=== PATIENT | female | born 1950 | race Caucasian/White ===

== ENCOUNTER 2022-03-18 13:13 | Outpatient (CLI) | payer OTHER, SELFPAY | END 2022-03-18 13:14 | disposition home or self-care (01) | LOC: NFLDREF 13:15 | PROVIDERS: PCP Family Medicine; Visit Provider Family Medicine | DX: N39.0 Urinary tract infection, site not specified (principal) | CPT/HCPCS: 87086; 87186 ==

== ENCOUNTER 2022-06-25 14:33 | Outpatient (CLI) | payer OTHER, SELFPAY | END 2022-06-25 14:34 | disposition home or self-care (01) | PROVIDERS: PCP Family Medicine; Visit Provider Family Medicine | DX: N39.0 Urinary tract infection, site not specified (principal) | CPT/HCPCS: 87086 ==

== ENCOUNTER 2022-07-08 13:10 | Outpatient (CLI) | payer OTHER, SELFPAY | END 2022-07-08 13:11 | disposition home or self-care (01) | LOC: NFLDREF 13:44 | PROVIDERS: PCP Family Medicine; Visit Provider Family Medicine | DX: N39.0 Urinary tract infection, site not specified (principal) | CPT/HCPCS: 87086 ==

== ENCOUNTER 2022-10-28 15:00 | Outpatient (CLI) | payer OTHER, SELFPAY | END 2022-10-28 15:01 | disposition home or self-care (01) | LOC: NFLDREF 10-30 00:36 | PROVIDERS: PCP Family Medicine; Referring Provider Family Medicine; Visit Provider Family Medicine | DX: N39.0 Urinary tract infection, site not specified (principal) | CPT/HCPCS: 87086 ==

== ENCOUNTER 2023-01-11 16:42 | Outpatient (CLI) | payer MEDICARE, SELFPAY | END 2023-01-11 16:43 | disposition home or self-care (01) | LOC: NFLDREF 01-12 14:31 | PROVIDERS: PCP Family Medicine; Referring Provider Family Medicine; Visit Provider Family Medicine | DX: N39.0 Urinary tract infection, site not specified (principal) | CPT/HCPCS: 87086; 87186 ==

== ENCOUNTER 2023-01-22 15:15 | Outpatient (CLI) | payer MEDICARE, SELFPAY | END 2023-01-22 15:16 | disposition home or self-care (01) | LOC: NFLDREF 01-24 17:02 | PROVIDERS: PCP Family Medicine; Referring Provider Family Medicine; Visit Provider Family Medicine | DX: N39.0 Urinary tract infection, site not specified (principal) | CPT/HCPCS: 87086 ==

== ENCOUNTER 2023-01-29 13:56 | Outpatient (CLI) | payer MEDICARE, SELFPAY | END 2023-01-29 13:57 | disposition home or self-care (01) | LOC: NFLDUCREF 13:57 | PROVIDERS: PCP Family Medicine; Visit Provider Nurse Practitioner Family | DX: M79.652 Pain in left thigh (principal) | CPT/HCPCS: 85379 ==

== ENCOUNTER 2023-02-26 11:15 | Outpatient (CLI) | payer MEDICARE, SELFPAY | END 2023-02-26 11:16 | disposition home or self-care (01) | LOC: NFLDREF 02-28 09:00 | PROVIDERS: PCP Family Medicine; Referring Provider Family Medicine | DX: N39.0 Urinary tract infection, site not specified (principal) | CPT/HCPCS: 87086; 87186 ==

== ENCOUNTER 2023-03-11 07:51 | Outpatient (CLI) | payer MEDICARE, SELFPAY ==
--- NOTE | 2023-03-11 07:02 | W.ANESCHARGE ---
Anesthesia Charges Start Date/Time Anesthesia Start Date: 03/11/23 Anesthesia Start Time: 08:50 Stop Date/Time Anesthesia Stop Date: 03/11/23 Anesthesia Stop Time: 09:25 Summary Extremes of Age - Over 70 or under 1: MDA
--- NOTE | 2023-03-11 10:26 | W.ANESCHARGE ---
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
== END 2023-03-11 07:52 | disposition home or self-care (01) ==
LOC: OP CLINIC 07:53
PROVIDERS: PCP Family Medicine; Visit Provider Surgery
DX: Z12.11 Encounter for screening for malignant neoplasm of colon (principal); K63.5 Polyp of colon; K64.4 Residual hemorrhoidal skin tags; K57.30 Diverticulosis of large intestine without perforation or abscess without bleeding; Z86.010 Personal history of colon polyps
CPT/HCPCS: 00811; 45385; 88305; 99100; J2704

== ENCOUNTER 2023-03-17 12:47 | Outpatient (CLI) | payer MEDICARE, SELFPAY ==
--- NOTE | 2023-03-17 13:00 | CRLHL7_ITS ---
For Patients: As a result of the Century Cures Act, medical imaging exams and procedure reports are released immediately into your electronic medical record. You may view this report before your referring provider. If you have questions, please contact your health care provider. BILATERAL SCREENING MAMMOGRAM WITH COMPUTER-AIDED DETECTION AND TOMOSYNTHESIS TECHNIQUE: CC and MLO views were obtained. These mammographic images have been obtained using full-field digital technique. These mammographic images were interpreted with the benefit of computer-aided detection. Breast Tomosynthesis was used in this interpretation. COMPARISON FILM: 09/01/21, 05/07/20, 05/02/19. FINDINGS: There are scattered areas of fibroglandular density IMPRESSION: There is no radiographic evidence for malignancy. ASSESSMENT: BI-RADS Category 2: Benign RECOMMENDATION: Routine screening mammogram in 1 year. A lay language report of this examination will be provided to the patient. Dank Henderson M.D. Diagnostic Radiologist [email or web address] STEPHANIE/Dictated by: Dank Henderson MD @ 03/18/2023 12:26:00 PM (Electronically Signed)
--- NOTE | 2023-03-17 13:30 | CRLHL7_ITS ---
For Patients: As a result of the Century Cures Act, medical imaging exams and procedure reports are released immediately into your electronic medical record. You may view this report before your referring provider. If you have questions, please contact your health care provider. DXA BONE MINERAL DENSITY STUDY Current height (in): 66.0. Weight (lb): 165.0. Menopause age: 56. Ethnicity: White. Reason for exam: Screening for osteoporosis. 1. Have you had a previous hip or vertebral fracture? No. 2. Have you had any fractures during your adult life which did not result from significant trauma (e.g., auto accident)? No. 3. Did either of your parents have a hip fracture? No. 4. Do you smoke? No. 5. Have you ever taken Glucocorticoids? No. 6. Do you have rheumatoid arthritis? No. 7. Do you have secondary osteoporosis? No. 8. Do you drink 3 or more alcoholic drinks per day? No. 9. Are you being treated for osteoporosis? No. 10. Have you ever taken any of the following medications: Actonel, Evista, Fosamax, Miacalcin, Reclast, Boniva, Forteo, HRT (i.e. estrogen/hormone therapy), Protelos, Prolia, Vitamin D, Calcium, other ??? please specify. ANSWER: Yes, vitamin D, calcium. 11. Do you have any of the following medical conditions: Anorexia or bulimia, asthma or emphysema, end stage renal disease, hyperparathyroidism, any seizure disorders, cancer, inflammatory bowel diseases, hysterectomy, other ??? please specify. ANSWER: No. 12. What was your maximum height (inches)? 66. 13. Do you perform weight bearing exercise regularly? No. 14. Do you regularly consume dairy products? Yes. 15. Do you drink caffeinated beverages? Yes. 16. At what age did your period start? 15. 17. Are you premenopausal? No. 18. How many full term pregnancies have you had? 0. 19. Have you ever missed your period for more than 6 months in a row (not including or menopause)? No. TECHNIQUE: Bone mineral density study was performed using the BView. FINDINGS: The results of the study expressed as bone mineral density (BMD) are as follows: Lumbar spine L1 to L4: BMD: 1.129 g/cm2. T-score: 0.7. Z-score: 3.0. Neck Left: BMD: 0.714 g/cm2. T-score: -1.2. Z-score: 0.7. Right: BMD: 0.744 g/cm2. T-score: -0.9. Z-score: 1.0. Total Left: BMD: 0.867 g/cm2. T-score: -0.6. Z-score: 1.0. Right: BMD: 0.915 g/cm2. T-score: -0.2. Z-score: 1.4. IMPRESSION: Osteopenia. *Comparison exams done prior to 12/2019 were performed on different unit, [facility]. COMPARISON: Compared with scan of 02/21/2018, the bone mineral density has increased by 5.1 percent at the spine and increased by 4.1 percent at the hip. FRAX 10-year Fracture Risk Major Osteoporotic Fracture: 9.8 percent Hip Fracture: 1.3 percent Reported Risk Factors: [place] () Neck BMD = 0.714, BMI = 26.6 Dank Henderson M.D. Diagnostic Radiologist [email or web address] Transcribed: 5:18 pm DW/Dictated by: Dank Henderson MD @ 03/17/2023 2:32:00 PM (Electronically Signed)
== END 2023-03-17 12:48 | disposition home or self-care (01) ==
LOC: MAMMO 12:48
PROVIDERS: PCP Family Medicine; Visit Provider Family Medicine
DX: Z12.31 Encounter for screening mammogram for malignant neoplasm of breast (principal); Z13.820 Encounter for screening for osteoporosis; M85.89 Other specified disorders of bone density and structure, multiple sites
CPT/HCPCS: 77063; 77067; 77080

== ENCOUNTER 2023-04-05 07:58 | Outpatient (CLI) | payer MEDICARE, SELFPAY ==
--- NOTE | 2023-04-05 08:15 | CRLHL7_ITS ---
For Patients: As a result of the Century Cures Act, medical imaging exams and procedure reports are released immediately into your electronic medical record. You may view this report before your referring provider. If you have questions, please contact your health care provider. INDICATION: Neck pain. COMPARISON: 03/25/2023. TECHNIQUE: Sagittal T1, T2, and STIR sequences. Axial T2/gradient sequences. FINDINGS: Normal vertebral body facet alignment. No fractures. No vertebral body loss of height. No spondylolisthesis. No ligamentous injury. Normal marrow signal. No suspicious osseous lesions. Normal cord signal. No intradural mass or lesion. C1-2: No spinal canal narrowing. C2-3: No splenic no neural foraminal narrowing. C3-4: Disk degeneration and posterior disc bulging disc osteophyte complex. Moderate right and mild left neural foraminal narrowing. C4-5: Disc generation and posterior disc bulge or disc osteophyte complex. No narrowing of spinal canal. Mild narrowing of the left neural foramen. No narrowing of the right neural foramen. C5-6: Disc degeneration posterior disc bulge or disc osteophyte complex. No narrowing of spinal canal. Moderate severe narrowing of bilateral foramina with potential impingement of the C6 nerve roots. C6-7: Disc generation posterior disc bulging disc osteophyte complex. No narrowing of spinal canal. Mild right and moderate left neural foraminal narrowing. C7-T1: Disc generation and posterior disc bulge or disc osteophyte complex. No narrowing of the spinal canal. Moderate right and mild left neural foraminal narrowing. T1-2: Disc generation posterior disc bulge. No narrowing of the spinal canal. Mild narrowing of the bilateral foramina. Vertebral body hemangioma T1. IMPRESSION: 1. Normal alignment. No fractures 2. Normal cord signal. No epidural mass or lesion. 3. Cervical spondylosis. 4. At C3-4, moderate right and mild left neural foraminal narrowing. 5. At C4-5, mild narrowing of the left neuroforamen 6. At C5-6, moderate severe narrowing of either neural foramina with impingement of the C6 nerve roots. 7. At C6-7, mild right and moderate left neural foraminal narrowing. 8. At C7-T1, moderate right and mild left neural foraminal narrowing. Dictated by Clarence Vanessa MD @ 04/05/2023 11:08:51 AM (Electronically Signed)
== END 2023-04-05 07:59 | disposition home or self-care (01) ==
LOC: MRI 07:58
PROVIDERS: PCP Family Medicine; Visit Provider Family Medicine
DX: M54.2 Cervicalgia (principal); M50.21 Other cervical disc displacement, high cervical region; M50.221 Other cervical disc displacement at C4-C5 level; M50.222 Other cervical disc displacement at C5-C6 level; M50.223 Other cervical disc displacement at C6-C7 level; M50.23 Other cervical disc displacement, cervicothoracic region
CPT/HCPCS: 72141

== ENCOUNTER 2023-04-15 10:32 | Outpatient (CLI) | payer MEDICARE, SELFPAY | END 2023-04-15 10:33 | disposition home or self-care (01) | LOC: NFLDREF 04-16 09:08 | PROVIDERS: PCP Family Medicine; Referring Provider Family Medicine; Visit Provider Family Medicine | DX: N39.0 Urinary tract infection, site not specified (principal) | CPT/HCPCS: 87086; 87186 ==

== ENCOUNTER 2023-05-20 09:37 | Outpatient (CLI) | payer MEDICARE, SELFPAY | END 2023-05-20 09:38 | disposition home or self-care (01) | LOC: NFLDREF 05-24 06:33 | PROVIDERS: PCP Family Medicine; Referring Provider Family Medicine; Visit Provider Family Medicine | DX: N39.0 Urinary tract infection, site not specified (principal) | CPT/HCPCS: 87086; 87186 ==

== ENCOUNTER 2023-07-20 09:15 | Outpatient (RCR) | payer MEDICARE, SELFPAY ==
--- NOTE | 2023-04-23 14:41 | PT.OPEX ---
PT [facility] Outpatient Eval PT [facility] Outpatient Eval Start: 04/23/23 07:37 Freq: Status: Active Protocol: Document 04/23/23 07:37 CRP (Rec: 04/23/23 14:36 CRP [id number]) E-signed By Ugo Caicedo PT Physical Therapy Outpatient Evaluation Insurance Information Recert Due Date 07/22/23 Insurance Information/Comments [employer] Medical Diagnosis Cervical spine spondylosis with radiculopathy Referring MD Dr Agustin Subjective Subjective Has almost constant neck pain that radiates into the R UT and can go down into the R upper arm. Will have tingling into the R hand. Started with this strawberry season. 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 MRI showed narrowing and arthritis. Is taking Celabrex . Pain increases generally with daily activity. Heat does seem to help. Also uses a pain patch. Sleep is fine and wakes without pain. The constant pain is an ache that is not always bad but is always present during the day. Pt reports she is staying as active as always. She just works through the pain. Pain Comments 01/25 Occupation Seasonal work. Objective Range of Motion cervical ROM Flex WNL with aching pain Ext min dec BIlat rot min dec R SB WNL L SB mod dec Shoulder ROM WNL Strength MMT Myotomes WNL Palpation Palpable pain interscap region Posture Forward head with kink at mid cervical spine with ext Other/Pertinent Objective Suboccip pain UPAs painful and hypomob R C1- C5 Assessment Assessment/Impression Pt presents to the clinic with chronic cervical spine pain and resulting radicular pain into the R upper extremity. Pts condition ins characterized by painful loss cervical flex and end range extension as well as poor nm control of the cervicothoracic spine. Skilled PT is necessary to incorporate ther ex, ther act, nm emerson, manual therapy and pt education to decrease pain and improve functional mobility. Primary Functional Limitations Completing work tasks Plan of Care Rehabilitation Potential Good Physical Therapy Goals 1. Pt will be 100% independent with HEP in 6 weeks. 2. 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 3. Pt will complete work tasks without pain in 12 weeks. Coordination/Communication With Referral Source Treatment Plan/Direct Interventions Joint Mobilization,Manual Therapy,Neuromuscular Re-ed, Self-Care/Home Management, Therapeutic Activities, Therapeutic Exercises Frequency/Duration 1-2x/wk for 12 weeks Patient Will Be Discharged From Therapy Completion of LTG(s),Skills Plateau,Independent w/HEP, Independently Progressing Evaluation Billing Untimed Code Treatment Minutes 30 Complexity Moderate Certification Information Initial Certification Date 04/23/23 Ending Certification Date 07/22/23 Provider Signature Shows Agreement With POC & Medical Necessity Physician Signature & Date Requested Please Sign/Date Here Physician Comment/Change : Physician NPI Number #
== END 2023-11-17 23:59 | disposition home or self-care (01) ==
PROVIDERS: PCP Family Medicine; Visit Provider Family Medicine
DX: M47.22 Other spondylosis with radiculopathy, cervical region (principal); Z51.89 Encounter for other specified aftercare
CPT/HCPCS: 97110; 97140; 97162

== ENCOUNTER 2023-09-27 09:56 | Outpatient (CLI) | payer MEDICARE, SELFPAY | END 2023-09-27 09:57 | disposition home or self-care (01) | LOC: NFLDREF 09:57 | PROVIDERS: PCP Family Medicine; Visit Provider Family Medicine | DX: R39.198 Other difficulties with micturition (principal) | CPT/HCPCS: 87086; 87186 ==

== ENCOUNTER 2023-11-08 14:04 | Outpatient (CLI) | payer OTHER, SELFPAY | END 2023-11-08 14:05 | disposition home or self-care (01) | PROVIDERS: PCP Family Medicine; Visit Provider Nurse Practitioner Family | DX: R53.83 Other fatigue (principal) | CPT/HCPCS: 80053; 82306; 87086; 87186 ==

== ENCOUNTER 2023-11-30 15:08 | Outpatient (CLI) | payer OTHER, SELFPAY ==
--- OUTSIDE RECORDS SUMMARY | 2023-11-30 15:12 | XMS_ITS | Clinical Summary ---
Author Name Unknown Organization [facility] Address [place], [place] [address] Care Team Providers Care Senior Manager Quality Assurance Name Role Phone Rm Nazario MD Primary Care Provider Allergies No known active allergies Medications Medication Sig Dispensed Refills Start Date End Date Status hydroCHLOROthiazide (HCTZ) 25 mg tablet Take 1 tablet by mouth once daily. 0 06/17/2016 Active atorvastatin (LIPITOR) 20 mg tablet Take 1 tablet by mouth at bedtime. 0 06/17/2016 Active cholecalciferol (VITAMIN D) 1,000 unit capsule Take 1 capsule by mouth once daily. 0 06/17/2016 Active trimethoprim 100 mg tabletIndications:Rec urrent UTI Take 1 tablet by mouth once daily. 90 tablet 3 07/10/2016 Active coenzyme q10 (CO Q-10) 100 mg cap Take 1 capsule by mouth once daily. 0 09/30/2016 Active Ascorbate Calcium 500 mg tab Take by mouth. 0 09/30/2016 Active [place]-3 Fatty Acids (FISH OIL) 500 mg capsule Take 1 capsule by mouth once daily. 0 09/30/2016 Active Active Problems Problem Noted Date Diagnosed Date History of recurrent UTIs 06/17/2016 Social History Tobacco Use Types Packs/Day Years Used Date Smoking Tobacco: Never Smokeless Tobacco: Never Tobacco Cessation:Counseling Given: Yes Alcohol Use Standard Drinks/Week Comments Yes 0 (1 standard drink = 0.6 oz pur e alcohol) 1 glass wine per week Sex and Gender Information Value Date Recorded Sex Assigned at Not on file Gender Identity Not on file Sexual Orientation Not on file Obstetrics History Last Filed Vital Signs Vital Sign Reading Time Taken Comments Blood Pressure 109/76 09/30/2016 11:15 AM CDT Pulse 84 09/30/2016 11:15 AM CDT Temperature 36.8 ??C (98.3 ??F) 09/30/2016 11:15 AM C DT Respiratory Rate 16 07/27/2016 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 Oxygen Saturation 99% 09/30/2016 11:15 AM CDT Inhaled Oxygen Concentration - - Weight 80.5 kg (177 lb 8 oz) 09/30/2016 11:15 AM CDT Height 161 cm (5' 3.39) 09/30/2016 11:15 AM CDT Body Mass Index 31.06 09/30/2016 11:15 AM CDT Plan of Treatment Health Maintenance Due Date Last Done Comments Tdap 1962 Depression screening for age 12+ 1963 Hepatitis C screening for age 18-79 1969 Tetanus booster 1971 Colonoscopy through age 75 01/17/1996 Lipids for age 45-75 01/17/1996 Mammogram for age 45-75 01/17/1996 Zoster (shingles) series for age 50+ (1 of 2) 2001 DEXA/DXA scan for age 65+ 01/17/2016 Pneumococcal series for age 65+ (1 of 1 - PCV) 01/17/2016 BMI (ht and wt on same day) for age 18+ 09/30/2017 0 09/30/2016, 06/17/2016 COVID-19 vaccine series (1 - 2022-24 season) 2023 Influenza for age 65+ 03/19/2024 Care Teams Senior Manager Quality Assurance Relationship Specialty Start Date End Date Rm Nazario MD [address] [place] [address] PCP - General Family Practice 01/25/12
== END 2023-11-30 15:09 | disposition home or self-care (01) ==
PROVIDERS: PCP Family Medicine; Visit Provider Nurse Practitioner Family
DX: R53.83 Other fatigue (principal); M25.50 Pain in unspecified joint
CPT/HCPCS: 82607; 86140; 86618; 87086; 87186

== ENCOUNTER 2023-12-02 14:30 | Outpatient (CLI) | payer OTHER, SELFPAY ==
--- OUTSIDE RECORDS SUMMARY | 2023-12-02 14:33 | XMS_ITS | Clinical Summary ---
Author Name Unknown Organization [facility] Address [place], [place] [address] Care Team Providers Care Livestock Counter Name Role Phone Rm Nazario MD Primary [...] tab Take by mouth. 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
== END 2023-12-02 14:31 | disposition home or self-care (01) ==
LOC: LKVREF 14:32
PROVIDERS: PCP Family Medicine; Visit Provider Nurse Practitioner Family
DX: R06.02 Shortness of breath (principal)
CPT/HCPCS: 83880

== ENCOUNTER 2023-12-10 17:22 | Emergency (ER) | payer OTHER, SELFPAY ==
[2023-12-10 17:28] VITALS: BP 135/80; PULSE 81; RESP 18; TEMP 36.4; O2SAT 96; BMI 29.1
[2023-12-10 17:50] LABS: Appearance Urine Clear (Clear); Bilirubin Urine Negative (Negative); Blood Urine Trace-intact (Negative); Color Urine Light yellow (Yellow); Glucose Urine Negative (Negative); Ketones Urine Negative (Negative); Leukocyte Esterase Urine Trace (Negative); Nitrite Urine Negative (Negative); Protein Urine Negative (Negative); Specific Gravity Urine 1.015 (1.000-1.030); Urobilinogen Urine 0.2 (0.2-1.0)
[2023-12-10 18:13] LABS: Bacteria Urine Moderate; RBC Urine 0-2 (0-2)
--- NOTE | 2023-12-10 18:27 | ED.GENADULT ---
HPI - General Adult General Date Seen: 12/10/23 Chief complaint: Urogenital Problems, Female Stated complaint: UTI Time Seen by Provider: 12/10/23 18:26 History of Present Illness HPI narrative: Very pleasant 73-year-old female presenting to the ER this afternoon with her . She has a complex mass medical history including C6 radiculopathy (symptoms going on for about 6 months, just had an epidural steroid injection today), history of frequent UTIs, ESBL Klebsiella, low back pain, hyperlipidemia, colon polyps, rheumatic fever, diverticulosis, lung nodules. She reports a long history of urinary tract infections. She has actually been having dysuria and symptoms of UTI ongoing for the past couple of months despite a couple rounds of antibiotics. Urine cultures from October and November grew the same pathogen that which up was apparently brought the resistant. Her most recent antibiotic was in October and was a single dose, possibly fosfomycin). In addition to those urinary symptoms she has ongoing trouble with arm pain and numbness. She has already been worked up for her neck and has a C6 radiculopathy and had her KOTA today. She has also had symptoms of shortness of breath, dyspnea on exertion and mild chest tightness ongoing for the past 3 weeks. She has had a cough that is nonproductive. She already had a chest x-ray a few days ago that was clear. She has also had swelling in her lower extremities (in the upper pretibial area only, not in her ankles and feet). No leg pain. No fevers or chills. No nausea or vomiting. Bowel movements have been normal. She is working on arranging our referral to [place] [facility] to be evaluated for her ongoing urinary symptoms . She tried to call their triage nurse today but was referred to the ER. They were concerned that with her UTI and other weakness/shortness of breath symptoms she might be ?septic. ? Patient reports that she has has symptoms of dysuria for the past couple months that are not getting better. Most recent course of antibiotics was in October. No other symptoms. No abdominal pain. No flank pain. No fever or chills. No nausea vomiting Also for about the past 3 week she has had symptoms of some generalized weakness, chest tightness, and dyspnea. He is of not really been getting better or worse. She has already had workups in the clinic without any clear explanation. She was referred to the ER today and wants to figure out some way to treat her UTI symptoms and also figure out why she is having the chest tightness shortness of breath. No history of tobacco use. No history of coronary disease. No history of asthma or lung disease. No recent travel. She has developed some edema affecting the upper 1/3 of both of her tibia is/ins for the past couple of weeks but no swelling in her ankles and feet. Clinic Visit Dr Ackerman 12/01 Morena is a very pleasant 73-year-old woman ... presents with essentially classic radicular left arm pain. Her symptoms date back more than [address] Gerardo Agustin in March of last year and MRI imaging of the cervical spine was obtained at that time. The MRI showed multilevel cervical spondylosis with severe bilateral foraminal stenosis at C5-6 with impingement of the bilateral C6 nerve roots. Her subjective symptoms are fully in keeping with that and in fact have consistently and steadily worsened since last March. Dr. Agustin sent her for a course of physical therapy which she completed. Unfortunately this did not yield any meaningful symptomatic benefit... She describes left-sided neck discomfort extending down the anterior aspect of the left arm all the way to the hand. She does feel however more than just the C6 dermatome involvement. She feels like all of her fingers are involved rather than just the left thumb and index finger as would be expected with C6. This would either indicate either further advancement of the other levels of the cervical spondylosis and or a secondary diagnosis such as cubital tunnel or carpal tunnel syndrome. ...now indicated to proceed with a cervical epidural steroid injection. This will be set up at [facility]. She will then return back to see me 1 week after the cervical epidural steroid injection. Given the possibility that there is another diagnosis of play I also want her to proceed with the EMG studies of the left upper extremity to rule out cubital tunnel versus carpal tunnel syndrome in addition to the cervical radiculopathy. 12/01-urgent care or visit Complaints of left-sided radiculopathy progressing over couple of months. Also of shortness of breath and poor activity tolerance. Noted some swelling in her lower legs as well. XR CHest 12/01FINDINGS: Cardiovascular and mediastinum: Cardiac silhouette is mildly enlarged. There is tortuosity of the aorta. Lungs and pleural spaces: Lungs are clear. No sign of infiltrate or mass. No sign of pleural effusion. No pneumothorax. Bones and soft tissues: No significant findings. N terminal proBNP was normal at 31 IMPRESSION: No acute findings. 11/29 Urgent care presents to the urgent care with complaints of generalized body aches along with fatigue she is reporting some left-sided pain tingling in all of her muscles including her chest muscles. She reports that she has been afebrile. She feels little bit more lightheaded and tired than normal. 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 She reports that she is not sleeping as she normally does. She has been up twice last night continuing to urinate. She reports that she has an excellent water drinker. She is also reporting a foggy brain. Urinalysis showed 0-2 RBC, 2-5 WBC, trace leukocyte esterase, few bacteria, few squamous epithelial cells. Negative nitrite. Urine culture grew Klebsiella pneumoniae greater 100,000 colony-forming units units per mL Broadly resistant. Sensitive to cefoxitin, ertapenem, levofloxacin, imipenem, piperacillin/tazobactam. Lyme disease antibody 0.23-normal 11/08/2023-urine culture grew Klebsiella.> 100,000 colony-forming units/mL. Sensitive to cefoxitin, ertapenem, imipenem, levofloxacin, piperacillin/tazobactam Related Data Home Medications ?Medication ?Instructions ?Recorded ?Confirmed celecoxib 100 mg capsule (Celebrex) 200 mg PO QDAY 12/02/23 12/02/23 Previous Rx's ?Medication ?Instructions ?Recorded atorvastatin 20 mg tablet 20 mg PO QHS #90 tabs 12/15/22 hydrochlorothiazide 25 mg tablet 25 mg PO QDAY #90 tabs 12/15/22 zolpidem 5 mg tablet 5 mg PO QHS PRN insomnia #90 tabs 07/08/23 levofloxacin 500 mg tablet 500 mg PO DAILY 4 days #4 tabs 12/10/23 Allergies Allergy/AdvReac Type Severity Reaction Status Date / Time No Known Drug Allergies Allergy Verified 12/10/23 20:13 [facility] Medical History (Updated 12/10/23 @ 21:50 by Tom Dash MD) Cervical radiculopathy at C6 ?M54.12 - Radiculopathy, cervical region (ICD-10) Fatigue ?R53.83 - Other fatigue (ICD-10) Left thigh pain ?M79.652 - Pain in left thigh (ICD-10) Urinary tract infection ?N39.0 - Urinary tract infection, site not specified (ICD-10) Surgical History History of hand surgery (11/07/20) ?Z98.890 - Other specified postprocedural states (ICD-10) S/P tonsillectomy and adenoidectomy ?Z90.89 - Acquired absence of other organs (ICD-10) Family History Other Breast cancer Thyroid disease Social History Smoking Status: Never smoker Non-prescribed substance use: denies use Little interest or pleasure in doing things: not at all Feeling down, depressed, or hopeless: not at all Exam Narrative: Exam Narrative: Constitutional: Appears well-developed and well-nourished. Alert. Conversant. Non toxic. HENT: Head: Atraumatic. Nose: Nose normal. Mouth/Throat: Oral mucosa is clear and moist. no trismus. Pharynx normal. Tonsils symmetric. No tonsillar enlargement, erythema, or exudate. Eyes: Conjunctivae normal. EOM normal. Pupils equal, round, and reactive to light. No scleral icterus. Neck: Normal range of motion. Neck supple. No tracheal deviation present. No JVD Cardiovascular: Normal rate, regular rhythm. No gallop. No friction rub. No murmur heard. Symmetric radial artery pulses Pulmonary/Chest: Effort normal. No stridor. No respiratory distress. No wheezes. No rales. No rhonchi . No tenderness. Abdominal: Soft. Bowel sounds normal. No distension. No mass. No tenderness. No rebound. No guarding. Musculoskeletal: RUE: Normal range of motion. No tenderness. No deformity LUE: Normal range of motion. No tenderness. No deformity RLE: Normal range of motion. 1+ edema affecting the upper 1/3 of her galeano. No tenderness. No deformity LLE: Normal range of motion. 1+ edema affecting the upper 1/3 of her galeano. No tenderness. No deformity Neurological: Alert and oriented to person, place, and time. Normal strength. CN II-VII intact. No sensory deficit. GCS eye subscore is 4. GCS verbal subscore is 5. GCS motor subscore is 6. Normal coordination Skin: Skin is warm and dry. No rash noted. No pallor. Normal capillary refill. She has a fairly deep agarwal on her hands but her forearms are not agarwal (has been wearing long sleeves) Psychiatric: Normal mood. Normal affect. Const: Vital Signs, click to edit/add: Vital Signs - 24 hr 12/10/23 17:28 Temperature 97.5 F L Pulse Rate [Left P ulse Oximeter] 81 Respiratory Rate 18 Blood Pressure [Ri ght Upper Arm] 135/80 Pulse Oximetry 96 Oxygen Delivery Me thod Room Air Course Vital Signs Vital signs: Initial Vital Signs Temperature 97.5 F L 12/10/23 17:28 Temperature Source Temporal Artery Scan 12/10/23 17:28 Pulse Rate 81 12/10/23 17:28 Pulse Rhythm Regular 12/10/23 17:28 Pulse Strength 3+ Normal 12/10/23 17:28 Respiratory Rate 18 12/10/23 17:28 Blood Pressure 135/80 12/10/23 17:28 Blood Pressure Mean 98 12/10/23 17:28 Blood Pressure Position Sitting 12/10/23 17:28 Pulse Oximetry 96 12/10/23 17:28 Oxygen Delivery Method Room Air 12/10/23 17:28 Vital Signs Temperature 97.5 F L 12/10/23 17:28 Pulse Rate 81 12/10/23 17:28 Respiratory Rate 18 12/10/23 17:28 Blood Pressure 135/80 12/10/23 17:28 Pulse Oximetry 96 12/10/23 17:28 Oxygen Delivery Method Room Air 12/10/23 17:28 Temperature 97.5 F L 12/10/23 17:28 Pulse Rate 81 12/10/23 17:28 Respiratory Rate 18 12/10/23 17:28 Blood Pressure 135/80 12/10/23 17:28 Pulse Oximetry 96 12/10/23 17:28 Oxygen Delivery Method Room Air 12/10/23 17:28 Medications Administered Medications: Discontinued Medications Generic Name Dose Route Start Last Admin Trade Name Freq PRN Reason Stop Dose Admin Levofloxacin 500 mg 12/10/23 21:10 12/10/23 21:44 Levofloxacin 500 Mg Tablet PO 12/10/23 21:11 500 mg ONCE ONE Administration Medical Decision Making [facility] Narrative Medical decision making narrative: Pleasant 73-year-old female presenting to the ER today with multiple indurated complaints. She has had dysuria symptoms for this past couple months and has had urine cultures growing Klebsiella in October and in November. This does have fairly broad resistance but is susceptible to level floxacillin as well as other IV antibiotics. She was referred by her urology clinic triage nurse because she might be ?septic. ?. Clinical exam and vital signs clearly indicate that she is not septic. Urinalysis today shows really not minimal signs of active infection. However she still has symptoms. After discussion of risks/benefits of fluoroquinolones, We will treat her with course of levofloxacin to cover for her Klebsiella. Level floxacillin 500 mg once daily for 5 days. Also consider the possibility that this Klebsiella is a colonizer and that her dysuria symptoms are related to non infectious etiology such as interstitial cystitis. I would recommend she still follow-up with Urology. SHe has an appointment next Wednesday. She also endorses that for the past 3 weeks she has had some dyspnea on exertion, chest tightness, weakness, as well as a mild cough. The chest tightness symptoms are not exertional or following a pattern typical for angina. Differential for this is broad. She had already had a chest x-ray and BNP level done in clinic last week that were normal. No evidence for CHF. Interestingly she does have a little bit of pretibial swelling on the upper 3rd of her tibia as. Swelling not really consistent with DVT. No overlying erythema to suggest cellulitis or abscess. Repeat in terminal proBNP today is still normal at 66 . EKG nonischemic. Troponin undetectable at less than 0.01. CT pulmonary angiogram of the chest does not show any evidence for PE but does show dense coronary calcifications. At this point no clear evidence for unstable angina (with 3 weeks of stable symptoms) or NSTEMI or STEMI. Nonetheless, consider an atypical presentation since she is female, would recommend outpatient follow-up with primary care to have stress testing as soon as possible. CT scan of her lungs she is negative for PE. No evidence for occult pneumonia. No pneumothorax. No pleural effusion. No pulmonary edema. No CT findings to suggest other chronic lung conditions such as autoimmune diseases or pulmonary fibrosis. She had not let yet had CBC to check hemoglobin. Hemoglobin today is 13.8. I noticed that CBC shows a white count of 13.1. Unclear etiology. Metabolic profile shows normal electrolytes, normal kidney function, normal blood sugar. Lung sounds are clear. No wheezing or bronchospasm. We did obtain chest CT to look for possible pneumonia that had been occult on recent chest x-ray and also to rule out other pathology such as PE causing her dyspnea. Lab Data Labs: Lab Results 12/10/23 12/10/23 Range/Units 17:30 19:10 WBC 13.12 H (4.50-11.00) K/uL RBC 4.70 (4.00-5.20) m/uL Hgb 13.8 (12.0-16.0) gm/dL Hct 43.2 (33.0-51.0) % MCV 92 (80-100) fL MCH 29 (26-34) pg MCHC 32 (32-36) gm/dL RDW Coeff of Didi 12.9 (11.5-15.5) % Plt Count 296 (140-440) K/uL Neut % (Auto) 91.4 H (42.0-72.0) % Lymph % (Auto) 6.2 L (20-44) % [place] % (Auto) 1.9 (0.0-11.0) % Eos % (Auto) 0.2 (0.0-7.0) % Baso % (Auto) 0.1 (0.0-3.0) % Neut # (Auto) 12.00 H (1.7-7.0) K/uL Lymph # (Auto) 0.80 L (0.90-2.90) K/uL [place] # (Auto) 0.20 (0.00-0.90) K/UL Eos # (Auto) 0.00 (0.00-0.50) K/uL Baso # (Auto) 0.00 (0.00-0.30) K/uL Abs Immat Gran (auto) 0.00 (0.00-0.30) K/uL Imm/Tot Granulo (auto) 0.2 % Sodium 140 (135-149) mmol/L Potassium 4.4 (3.6-5.1) mmol/L Chloride 103 (96-114) mmol/L Carbon Dioxide 24 (20-32) mmol/L Anion Gap 13 (7-15) mEq/L BUN 21 (7-30) mg/dL Creatinine 0.7 (0.5-1.5) mg/dL Estimated Creat Clear 45.76 Estimated GFR 92 ml/min Glucose 130 H (60-115) mg/dL Calcium 10.3 (8.4-10.6) mg/dL Troponin I < 0.01 L (0.01-0.04) ng/mL NT-Pro-B Natriuret Pep 66 pg/mL Urine Color Light yellow (Yellow) Urine Appearance Clear (Clear) Urine pH 7.0 (5.0-8.5) Ur Specific [place] 1.015 (1.000-1.030) Urine Protein Negative (Negative) Urine Glucose (UA) Negative (Negative) Urine Ketones Negative (Negative) Urine Blood Trace-intact A (Negative) Urine Nitrite Negative (Negative) Urine Bilirubin Negative (Negative) Urine Urobilinogen 0.2 (0.2-1.0) Ur Leukocyte Esterase Trace A (Negative) Urine RBC 0-2 (0-2) Urine WBC 2-5 (0-5) Ur Squamous Epith Cells None (None-Few) Urine Bacteria Moderate A (None) Imaging Data CT scan - chest: Attestation: I have reviewed the pertinent imaging results. Radiologist's impression: IMPRESSION: 1. No pulmonary embolus. No CT evidence of right heart strain. 2. No acute intrathoracic pathology. 3. Dense coronary arterial calcifications. Advise correlation with ASCVD evaluation. ECG Data Attestation: I personally reviewed and interpreted this ECG as follows: Interpretation: Normal sinus rhythm. Rate 92 MS interval 170 Normal QRS axis. No ST segment elevation or depression. Nonspecific T-wave changes in leads V1, V2, V3, lead 3 QTC 467 Discharge Plan Discharge Clinical Impression: Coronary artery calcification, Acute dyspnea, UTI symptoms Patient Disposition: Home, Self-Care Condition: Stable Instructions: Urinary Tract Infection in Women (DC), Dyspnea (ED), Coronary Artery Disease in Women (DC) Additional Instructions: At this point the exact cause of your shortness of breath is not clear. You do not have any blood clots in your lungs or any pneumonia. No heart attack today. We do see the you have signs of coronary artery disease on your CT scan. At this point no evidence for heart attack. It is very important for you to follow-up with your regular doctor by next week and arrange an outpatient stress test for further evaluation. If you develop any worsening shortness of breath or chest tightness, come back to the ER right away. We will put you on levofloxacin, a strong antibiotic, to treat your urinary symptoms. Do not take calcium pills for the next 5 days while you are on the levofloxacin. This should help any infection get better within the next 2-3 days. If you get worse, come back to the ER right away. Even if you get better please follow-up with the urologist next week for recheck. Prescriptions: New levofloxacin 500 mg tablet 500 mg PO DAILY 4 Days Qty: 4 0RF No Action atorvastatin 20 mg tablet 20 mg PO QHS Qty: 90 3RF hydrochlorothiazide 25 mg tablet 25 mg PO QDAY Qty: 90 3RF celecoxib [Celebrex] 100 mg capsule 200 mg PO QDAY zolpidem 5 mg tablet 5 mg PO QHS PRN (Reason: insomnia) Qty: 90 1RF Follow Up/Referrals: Shane Tobin MD [Staff Physician] - Stand Alone Forms: [employer] Info Instructions
--- NOTE | 2023-12-10 19:02 | CRLHL7_ITS ---
For Patients: As a result of the Century Cures Act, medical imaging exams and procedure reports are released immediately into your electronic medical record. You may view this report before your referring provider. If you have questions, please contact your health care provider. INDICATION: Dyspnea. Chest pain. TECHNIQUE: Multiplanar CT pulmonary angiogram was performed after the administration of 95 mL of Isovue 370 intravenous contrast. COMPARISON: Chest radiographs 12/02/2023. FINDINGS: Lower neck: The visualized thyroid is unremarkable. Cardiovascular: Contrast opacification of the pulmonary arterial tree is adequate. Heart size is normal. Thoracic aorta and pulmonary artery are normal in caliber. Mild atherosclerotic calcifications of the aortic arch. Dense coronary arterial calcifications. No pulmonary embolus. Mediastinum and lymph nodes: Unremarkable. Lungs: Tiny calcified granuloma within the right lung apex. No focal consolidation. Dependent atelectasis. Linear bandlike opacification of the lung bases bilaterally, likely subsegmental atelectasis and/or scarring. Airways: Trachea remains patent and midline. Mild diffuse peribronchial wall thickening. Pleura: No pleural effusions or pneumothorax. Chest wall: Unremarkable. Bones: No acute osseous abnormalities. Mild degenerative changes of the thoracic spine. Upper abdomen: Colonic diverticulosis without CT evidence of acute diverticulitis. Otherwise, the visualized upper abdomen is within normal limits. No reflux of contrast material into the IVC. IMPRESSION: 1. No pulmonary embolus. No CT evidence of right heart strain. 2. No acute intrathoracic pathology. 3. Dense coronary arterial calcifications. Advise correlation with ASCVD evaluation. Please note that all CT scans at this facility use dose modulation, iterative reconstruction, and/or weight-based dosing when appropriate to reduce radiation dose to as low as reasonably achievable. Dictated by Heron Beyer MD @ 12/10/2023 9:21:57 PM (Electronically Signed)
[2023-12-10 19:20] LABS: Basophils Percent Auto 0.1 % (0.0-3.0); Eosinophils Percent Auto 0.2 % (0.0-7.0); Hematocrit 43.2 % (33.0-51.0); Hemoglobin* 13.8 gm/dL (12.0-16.0); Immature Granulocytes Pct Auto 0.2 %; Lymphocytes Percent Auto 6.2 % (20-44); Mean Corpuscular HGB Conc 32 gm/dL (32-36); Mean Corpuscular Hemoglobin 29 pg (26-34); Mean Corpuscular Volume 92 fL (80-100); Monocytes Percent Auto 1.9 % (0.0-11.0); Neutrophils Percent Auto 91.4 % (42.0-72.0); Platelet Count* 296 K/uL (140-440); RDW Coefficient of Variation % 12.9 % (11.5-15.5); White Blood Count* 13.12 K/uL (4.50-11.00)
--- OUTSIDE RECORDS SUMMARY | 2023-12-10 19:21 | XMS_ITS | Clinical Summary ---
Author Organization [employer] [facility] Address [place], [place] [address] Care Team Providers Care Dosier Operator Name Role Phone Rm Nazario MD Primary [...] tab Take by mouth. 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
[2023-12-10 19:23] LABS: Slide Review Reflex No
[2023-12-10 19:46] LABS: Chloride* 103 mmol/L (96-114); Potassium* 4.4 mmol/L (3.6-5.1); Sodium* 140 mmol/L (135-149)
[2023-12-10 19:49] LABS: Anion Gap 13 mEq/L (7-15); Blood Urea Nitrogen* 21 mg/dL (7-30); Calcium* 10.3 mg/dL (8.4-10.6); Carbon Dioxide* 24 mmol/L (20-32); Creatinine* 0.7 mg/dL (0.5-1.5); Est. Creatinine Clearance* 45.76; Estimated Glomerular Filt Rate 92 ml/min; Glucose* 130 mg/dL (60-115)
[2023-12-10 20:15] LABS: NT Pro B Type NatriureticPept* 66 pg/mL
[2023-12-10 21:29] LABS: Troponin I* < 0.01 ng/mL (0.01-0.04)
[2023-12-10] MEDS: levoFLOXacin 500 MG TABLET PO (21:44)
== END 2023-12-10 21:58 | disposition home or self-care (01) ==
PROVIDERS: Emergency Provider Emergency Medicine; PCP Nurse Practitioner Family
DX: I25.10 Atherosclerotic heart disease of native coronary artery without angina pectoris (principal); R06.00 Dyspnea, unspecified; R30.0 Dysuria
CPT/HCPCS: 36415; 71275; 80048; 81001; 83880; 84484; 85025; 87086; 87186; 93005; 99284; 99285; A9270; Q9967

== ENCOUNTER 2023-12-12 18:14 | Emergency (ER) | payer OTHER, SELFPAY ==
[2023-12-12 18:17] VITALS: BP 153/81; PULSE 86; RESP 18; TEMP 36.5; O2SAT 95; BMI 27.4
[2023-12-12 19:09] LABS: Basophils Absolute Auto 0.02 K/uL (0.00-0.30); Basophils Percent Auto 0.2 % (0.0-3.0); Eosinophils Absolute Auto 0.12 K/uL (0.00-0.50); Eosinophils Percent Auto 1.1 % (0.0-7.0); Hematocrit 41.2 % (33.0-51.0); Hemoglobin* 13.4 gm/dL (12.0-16.0); Immature Granulocytes Abs Auto 0.01 K/uL (0.00-0.30); Immature Granulocytes Pct Auto 0.1 %; Lymphocytes Percent Auto 18.2 % (20-44); Mean Corpuscular HGB Conc 33 gm/dL (32-36); Mean Corpuscular Hemoglobin 30 pg (26-34); Mean Corpuscular Volume 92 fL (80-100); Neutrophils Absolute Auto 7.52 K/uL (1.7-7.0); Neutrophils Percent Auto 71.4 % (42.0-72.0); Platelet Count* 285 K/uL (140-440); RDW Coefficient of Variation % 12.8 % (11.5-15.5); Red Blood Count 4.49 m/uL (4.00-5.20); White Blood Count* 10.54 K/uL (4.50-11.00)
[2023-12-12 19:10] LABS: Slide Review Reflex No
--- OUTSIDE RECORDS SUMMARY | 2023-12-12 19:14 | XMS_ITS | Clinical Summary ---
Author Organization [employer] [facility] Address [place], [place] [address] Care Team Providers Care Teletype Clerk Name Role Phone Rm Nazario MD Primary [...] tab Take by mouth. 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
[2023-12-12 19:22] LABS: Chloride* 100 mmol/L (96-114); Potassium* 3.8 mmol/L (3.6-5.1); Sodium* 137 mmol/L (135-149)
[2023-12-12 19:25] LABS: Anion Gap 8 mEq/L (7-15); Blood Urea Nitrogen* 25 mg/dL (7-30); Calcium* 10.1 mg/dL (8.4-10.6); Carbon Dioxide* 29 mmol/L (20-32); Creatinine* 0.9 mg/dL (0.5-1.5); Estimated Glomerular Filt Rate 68 ml/min; Glucose* 84 mg/dL (60-115)
[2023-12-12] MEDS: ERTAPENEM 1 GM in 0.9 % SODIUM CHLORIDE Mini-bag 100 ML IVPB (19:27)
[2023-12-12] MEDS: diphenhydrAMINE 50 MG/ML inj 12.5 MG IVP (19:27)
[2023-12-12 19:39] LABS: Troponin I* < 0.01 ng/mL (0.01-0.04)
--- NOTE | 2023-12-12 20:42 | ED_ITS ---
HPI - General Adult General Chief complaint: Allergic Reaction Stated complaint: Allergic reaction Time Seen by Provider: 12/12/23 18:28 History of Present Illness HPI narrative: This is a very pleasant 73-year-old female returning to the ER this afternoon. I had seen her couple of days ago was in the ER for ongoing symptoms of dysuria and urgency and frequency from UTI. She has had recent positive cultures for Klebsiella with multiple antibiotic resistance is. I discharged her home on level floxacillin. She had taken a dose in the ER and a dose yesterday but now is developing red itchiness of her face and a little red rash on her back. She had called the ER nurses and I instructed the patient to come back here to the ER for re-evaluation in case she was developing severe allergic reaction. Other than the new rash and the redness and itchiness or face no other new sympt oms. No new fevers. She does have some chills today. No nausea or vomiting. No new abdominal pain or back pain. She has ongoing chest heaviness that is been present now for the past 3 or 4 weeks and is unchanged since her last ER visit. no new swelling in her mouth or throat. No trouble breathing. No change in her voice. No nausea or vomiting. Related Data Home Medications ?Medication ?Instructions ?Recorded ?Confirmed celecoxib 100 mg capsule (Celebrex) 200 mg PO QDAY 12/02/23 12/02/23 Previous Rx's ?Medication ?Instructions ?Recorded atorvastatin 20 mg tablet 20 mg PO QHS #90 tabs 12/15/22 hydrochlorothiazide 25 mg tablet 25 mg PO QDAY #90 tabs 12/15/22 zolpidem 5 mg tablet 5 mg PO QHS PRN insomnia #90 tabs 07/08/23 levofloxacin 500 mg tablet 500 mg PO DAILY 4 days #4 tabs 12/10/23 Allergies Allergy/AdvReac Type Severity Reaction Status Date / Time levofloxacin Allergy Intermediate Flushing Verified 12/12/23 19:29 [facility] Medical History (Updated 12/10/23 @ 21:50 by Tom Dash MD) Cervical radiculopathy at C6 ?M54.12 - Radiculopathy, cervical region (ICD-10) Fatigue ?R53.83 - Other fatigue (ICD-10) Left thigh pain ?M79.652 - Pain in left thigh (ICD-10) Urinary tract infection ?N39.0 - Urinary tract infection, site not specified (ICD-10) Surgical History History of hand surgery (11/07/20) ?Z98.890 - Other specified postprocedural states (ICD-10) S/P tonsillectomy and adenoidectomy ?Z90.89 - Acquired absence of other organs (ICD-10) Family History Other Breast cancer Thyroid disease Social History Smoking Status: Never smoker Non-prescribed substance use: denies use Little interest or pleasure in doing things: not at all Feeling down, depressed, or hopeless: not at all Exam Narrative: Exam Narrative: Constitutional: Appears well-developed and well-nourished. Alert. Conversant. Non toxic. HENT: Head: Atraumatic. Nose: Nose normal. Mouth/Throat: Oral mucosa is clear and moist. no trismus. Pharynx normal. Tonsils symmetric. No tonsillar enlargement, erythema, or exudate. Eyes: Conjunctivae normal. EOM normal. Pupils equal, round, and reactive to light. No scleral icterus. Neck: Normal range of motion. Neck supple. No tracheal deviation present. No JVD Cardiovascular: Normal rate, regular rhythm. No gallop. No friction rub. No murmur heard. Symmetric radial artery pulses Pulmonary/Chest: Effort normal. No stridor. No respiratory distress. No wheezes. No rales. No rhonchi . No tenderness. Abdominal: Soft.No distension. No mass. No tenderness. No rebound. No guarding. No CVA tenderness Musculoskeletal: RUE: Normal range of motion. No tenderness. No deformity LUE: Normal range of motion. No tenderness. No deformity RLE: Normal range of motion. No edema. No tenderness. No deformity LLE: Normal range of motion. No edema. No tenderness. No deformity Lymph: No cervical adenopathy. Neurological: Alert and oriented to person, place, and time. Normal strength. CN II-VII intact. No sensory deficit. GCS eye subscore is 4. GCS verbal subscore is 5. GCS motor subscore is 6. Normal coordination Skin: She does have a confluent erythematous rash on her back with more redness on both of her flanks. No definite hives but I suspect this is probably a llergic phenomena from her level Floxin. Also somewhat red face. No intraoral lesions. Skin is warm and dry. Upper and lower extremities are both normal. No other rash noted. No pallor. Normal capillary refill. Psychiatric: Normal mood. Normal affect. Very pleasant. Const: Vital Signs, click to edit/add: Vital Signs - 24 hr 12/12/23 18:17 Temperature 97.7 F Pulse Rate [Right Pulse Oximeter] 86 Respiratory Rate 18 Blood Pressure [Ri ght Upper Arm] 153/81 H Pulse Oximetry 95 Oxygen Delivery Me thod Room Air Course Vital Signs Vital signs: Initial Vital Signs Temperature 97.7 F 12/12/23 18:17 Temperature Source Temporal Artery Scan 12/12/23 18:17 Pulse Rate 86 12/12/23 18:17 Pulse Rhythm Regular 12/12/23 18:17 Pulse Strength 3+ Normal 12/12/23 18:17 Respiratory Rate 18 12/12/23 18:17 Blood Pressure 153/81 H 12/12/23 18:17 Blood Pressure Mean 105 12/12/23 18:17 Blood Pressure Position Sitting 12/12/23 18:17 Pulse Oximetry 95 12/12/23 18:17 Oxygen Delivery Method Room Air 12/12/23 18:17 Vital Signs Temperature 97.7 F 12/12/23 18:17 Pulse Rate 86 12/12/23 18:17 Respiratory Rate 18 12/12/23 18:17 Blood Pressure 153/81 H 12/12/23 18:17 Pulse Oximetry 95 12/12/23 18:17 Oxygen Delivery Method Room Air 12/12/23 18:17 Temperature 97.7 F 12/12/23 18:17 Pulse Rate 86 12/12/23 18:17 Respiratory Rate 18 12/12/23 18:17 Blood Pressure 153/81 H 12/12/23 18:17 Pulse Oximetry 95 12/12/23 18:17 Oxygen Delivery Method Room Air 12/12/23 18:17 Medications Administered Medications: Discontinued Medications Generic Name Dose Route Start Last Admin Trade Name Freq PRN Reason Stop Dose Admin Diphenhydramine HCl 12.5 mg 12/12/23 18:28 12/12/23 19:27 Diphenhydramine 50 Mg/Ml Inj IVP 12/12/23 18:29 12.5 mg ONCE ONE Administration Ertapenem 1 gm/ Sodium 100 mls @ 200 mls/hr 12/12/23 18:28 12/12/23 20:05 Chloride IVPB 12/12/23 18:29 Infused ONCE ONE Infusion Medical Decision Making MDM Narrative Medical decision making narrative: Pleasant 73-year-old female return to the ER today after she and I had a phone conversation this afternoon. She is developing redness of the skin on her face and back after beginning on Levaquin 2 days ago. Suspect this is probably an allergy to Levaquin. Would recommend that she stop it. No airway involvement, bronchospasm, GI symptoms, hypotension, or other sign of anaphylaxis. Patient was treated here with medications as noted above. Symptoms improved after meds. Will send home with epipen, steroids, antihistamines. Potential for rebound reaction was discussed. Will manage with Benadryl orally at home. Given the rapidity of improvement, lack of serious systemic symptoms, lack of respiratory difficulty and no oral or pharyngeal swelling, would not admit at this time for anaphylaxis. There is no signs of anaphylactic shock. Her urine culture from the sample in the ER that today again grew Klebsiella. This is a 3rd consecutive culture growing Klebsiella with multiple drug resistances. We established IV and gave her a g of Invanz here in the ER. At this point there is no evidence for sepsis or hemodynamic instability. Discussed with the patient and her about options which would include admission for IV antibiotics versus discharge home with outpatient antibiotics. They would prefer outpatient and I agree. Will set her up for daily infusions of Invanz 1 g IV for a total of 7 days (6 more doses after today). Repeat lab workup shows reassuring white count, normal kidney function. Because of ongoing dyspnea (not worse, but not better) we did repeat EKG troponin which are still showing no sign of ischemia. With reasonable clinical compensates think is safe for outpatient management. Lab Data Labs: Lab Results 12/12/23 Range/Units 19:00 WBC 10.54 (4.50-11.00) K/uL RBC 4.49 (4.00-5.20) m/uL Hgb 13.4 (12.0-16.0) gm/dL Hct 41.2 (33.0-51.0) % MCV 92 (80-100) fL MCH 30 (26-34) pg MCHC 33 (32-36) gm/dL RDW Coeff of Didi 12.8 (11.5-15.5) % Plt Count 285 (140-440) K/uL Neut % (Auto) 71.4 (42.0-72.0) % Lymph % (Auto) 18.2 L (20-44) % [place] % (Auto) 9.0 (0.0-11.0) % Eos % (Auto) 1.1 (0.0-7.0) % Baso % (Auto) 0.2 (0.0-3.0) % Neut # (Auto) 7.52 H (1.7-7.0) K/uL Lymph # (Auto) 1.90 (0.90-2.90) K/uL [place] # (Auto) 0.90 (0.00-0.90) K/UL Eos # (Auto) 0.12 (0.00-0.50) K/uL Baso # (Auto) 0.02 (0.00-0.30) K/uL Abs Immat Gran (auto) 0.01 (0.00-0.30) K/uL Imm/Tot Granulo (auto) 0.1 % Sodium 137 (135-149) mmol/L Potassium 3.8 (3.6-5.1) mmol/L Chloride 100 (96-114) mmol/L Carbon Dioxide 29 (20-32) mmol/L Anion Gap 8 (7-15) mEq/L BUN 25 (7-30) mg/dL Creatinine 0.9 (0.5-1.5) mg/dL Estimated Creat Clear 47.60 Estimated GFR 68 ml/min Glucose 84 (60-115) mg/dL Calcium 10.1 (8.4-10.6) mg/dL Troponin I < 0.01 L (0.01-0.04) ng/mL Discharge Plan Discharge Prescriptions: No Action atorvastatin 20 mg tablet 20 mg PO QHS Qty: 90 3RF hydrochlorothiazide 25 mg tablet 25 mg PO QDAY Qty: 90 3RF celecoxib [Celebrex] 100 mg capsule 200 mg PO QDAY levofloxacin 500 mg tablet 500 mg PO DAILY 4 Days Qty: 4 0RF zolpidem 5 mg tablet 5 mg PO QHS PRN (Reason: insomnia) Qty: 90 1RF Follow Up/Referrals: Billie Gonsalez CNP [Primary Care Provider] -
== END 2023-12-12 21:10 | disposition home or self-care (01) ==
PROVIDERS: Emergency Provider Emergency Medicine; PCP Nurse Practitioner Family
DX: R21 Rash and other nonspecific skin eruption (principal); N39.0 Urinary tract infection, site not specified; B96.1 Klebsiella pneumoniae [K. pneumoniae] as the cause of diseases classified elsewhere
CPT/HCPCS: 36415; 80048; 84484; 85025; 93005; 96374; 96375; 99283; 99284; J1200; J1335

== ENCOUNTER 2023-12-18 13:54 | Outpatient (RCR) | payer OTHER, SELFPAY ==
[2023-12-13] MEDS: ERTAPENEM 1 GM in 0.9 % SODIUM CHLORIDE Mini-bag 100 ML IVPB (16:20)
[2023-12-13 16:24] VITALS: BP 126/82; PULSE 93; RESP 16; TEMP 36.4; O2SAT 94
--- NOTE | 2023-12-13 17:44 | PC.NURSE ---
Outpatient infusion-- VSS and pt is afebrile. SPO2 >90% on RA. Pt arrived with SL in left AC which was bloody and leaking. SL was discontinued with tip intact. 20g IV inserted in left wrist. Infusion completed without difficulty although pt did mention a strange taste in her mouth following infusion. Pt dc'd to home ambulatory at approximately 1720.
[2023-12-14 14:02] VITALS: BP 120/74; PULSE 89; RESP 18; TEMP 36; O2SAT 97
[2023-12-14] MEDS: ERTAPENEM 1 GM in 0.9 % SODIUM CHLORIDE Mini-bag 100 ML IVPB (14:18)
[2023-12-14] MEDS: 0.9 % SODIUM CHLORIDE 250 ml IV (15:44)
[2023-12-15 13:57] VITALS: BP 131/91; PULSE 97; RESP 16; TEMP 36.6; O2SAT 97
[2023-12-15] MEDS: ERTAPENEM 1 GM in 0.9 % SODIUM CHLORIDE Mini-bag 100 ML IVPB (14:21)
[2023-12-15] MEDS: 0.9 % SODIUM CHLORIDE 250 ml IV (14:22)
[2023-12-15] MEDS: SODIUM CHLORIDE 0.9 % (FLUSH) 10 ML SYRINGE IVF (14:22)
[2023-12-16 14:33] VITALS: BP 144/52; PULSE 96; RESP 16; TEMP 36.3; O2SAT 95
[2023-12-16] MEDS: ERTAPENEM 1 GM in 0.9 % SODIUM CHLORIDE Mini-bag 100 ML IVPB (15:35)
[2023-12-16] MEDS: SODIUM CHLORIDE 0.9 % (FLUSH) 10 ML SYRINGE IVF (15:35)
[2023-12-16] MEDS: 0.9 % SODIUM CHLORIDE 250 ml IV (15:35)
[2023-12-17 14:16] VITALS: BP 136/65; PULSE 91; RESP 16; TEMP 36.6; O2SAT 96
[2023-12-17] MEDS: 0.9 % SODIUM CHLORIDE 250 ml IV (14:21)
[2023-12-17] MEDS: SODIUM CHLORIDE 0.9 % (FLUSH) 10 ML SYRINGE IVF (14:21)
[2023-12-17] MEDS: ERTAPENEM 1 GM in 0.9 % SODIUM CHLORIDE Mini-bag 100 ML IVPB (14:21)
[2023-12-18 14:00] VITALS: BP 120/47; PULSE 95; RESP 18; TEMP 36.9; O2SAT 95
[2023-12-18] MEDS: ERTAPENEM 1 GM in 0.9 % SODIUM CHLORIDE Mini-bag 100 ML IVPB (14:14)
== END 2024-06-10 23:59 | disposition home or self-care (01) ==
LOC: CCIC 13:54
PROVIDERS: PCP Nurse Practitioner Family; Referring Provider Nurse Practitioner Family; Visit Provider Family Medicine
DX: N39.0 Urinary tract infection, site not specified (principal); B96.89 Other specified bacterial agents as the cause of diseases classified elsewhere
CPT/HCPCS: 72148; 96365; G0463; J1335; J7050

== ENCOUNTER 2024-07-03 09:12 | Outpatient (CLI) | payer OTHER, SELFPAY | END 2024-07-03 09:13 | disposition home or self-care (01) | LOC: NFLDREF 07-04 02:32 | PROVIDERS: PCP Nurse Practitioner Family; Referring Provider Nurse Practitioner Family; Visit Provider Nurse Practitioner Family | DX: E78.00 Pure hypercholesterolemia, unspecified (principal) | CPT/HCPCS: 80061; 80076 ==

== ENCOUNTER 2024-10-30 08:59 | Outpatient (CLI) | payer OTHER, SELFPAY | END 2024-10-30 09:00 | disposition home or self-care (01) | LOC: NFLDREF 11-01 07:07 | PROVIDERS: PCP Family Medicine; Referring Provider Nurse Practitioner Family; Visit Provider Family Medicine | DX: I10 Essential (primary) hypertension (principal); E78.00 Pure hypercholesterolemia, unspecified; R53.83 Other fatigue; Z13.29 Encounter for screening for other suspected endocrine disorder | CPT/HCPCS: 80048; 80061; 84443 ==

== ENCOUNTER 2024-11-15 12:34 | Outpatient (CLI) | payer OTHER, SELFPAY | END 2024-11-15 12:35 | disposition home or self-care (01) | LOC: LKVREF 12:35 | PROVIDERS: PCP Family Medicine; Visit Provider Family Medicine | DX: N39.0 Urinary tract infection, site not specified (principal); B96.20 Unspecified Escherichia coli [E. coli] as the cause of diseases classified elsewhere | CPT/HCPCS: 87086 ==

== ENCOUNTER 2024-12-12 12:06 | Outpatient (CLI) | payer OTHER, SELFPAY | END 2024-12-12 12:07 | disposition home or self-care (01) | LOC: LKVREF 12:07 | PROVIDERS: PCP Family Medicine; Visit Provider Family Medicine | DX: R35.0 Frequency of micturition (principal) | CPT/HCPCS: 87086 ==

== ENCOUNTER 2025-02-26 11:45 | Outpatient (CLI) | payer OTHER, SELFPAY | END 2025-02-26 11:46 | disposition home or self-care (01) | LOC: NFLDREF 03-02 11:14 | PROVIDERS: PCP Family Medicine; Referring Provider Family Medicine; Visit Provider Family Medicine | DX: R35.0 Frequency of micturition (principal); N39.0 Urinary tract infection, site not specified | CPT/HCPCS: 87086 ==

== ENCOUNTER 2025-06-26 14:13 | Emergency (ER) | payer OTHER, SELFPAY ==
[2025-06-26 15:07] VITALS: BP 140/77; PULSE 87; RESP 18; TEMP 36.9; O2SAT 95
--- NOTE | 2025-06-26 17:02 | ED.GENADULT ---
HPI - General Adult General Date Seen: 06/26/25 Chief complaint: Urogenital Problems, Female Stated complaint: Needs antibiotics Time Seen by Provider: 06/26/25 16:57 History of Present Illness HPI narrative: Very pleasant 75-year-old female presenting to the ER this afternoon with her for evaluation of UTI. She has a complex mass medical history including C6 radiculopathy, , history of frequent UTIs, ESBL Klebsiella, low back pain, hyperlipidemia, colon polyps, rheumatic fever, diverticulosis, lung nodules. She has had multiple recent UTIs and has had symptoms of UTI ongoing for about 2 months. She has been working with [facility] for this and has had a couple of urinalyses that have shown E coli. She has been on 2 rounds of antibiotics (Macrobid) but symptoms have not resolved. She had another culture drawn and resulted yesterday that grew Pseudomonas. She was called by her urologist today and told to come to get IV antibiotics based on this resistance pattern. Her symptoms of UTI included a little bit of hot burning in her lower abdomen, urinary frequency. She has sometimes feels fever and chill but is not fevers today. She is having some back ache but not definitively a kidney pain. No nausea vomiting. No weakness. Her symptoms have been like this for a month or so. There are not acutely worse today. She came to the ER today be because her urologist advised her that she needed IV antibiotics. The patient brought with her a copy of her urine culture from [facility]. Dated 06/21/2025 by clean catch. Urine culture is growing Pseudomonas aeruginosa [id number] cells per male. The Pseudomonas sensitive to cefepime, gentamicin, meropenem, Zosyn. It is resistant to ceftazidime, cefepime/emtazobactam, also resistant to Cipro, levofloxacin. Related Data Home Medications ?Medication ?Instructions ?Recorded ?Confirmed aspirin 81 mg tablet,delayed 81 mg PO QDAY 08/07/24 06/26/25 release atorvastatin 20 mg tablet 20 mg PO QPM 06/19/25 06/26/25 Previous Rx's ?Medication ?Instructions ?Recorded zolpidem 5 mg tablet 5 mg PO QHS PRN insomnia #90 tabs 01/02/25 Allergies Allergy/AdvReac Type Severity Reaction Status Date / Time levofloxacin Allergy Intermediate Flushing Verified 06/26/25 15:12 PFSH PFSH Medical History (Updated 06/26/25 @ 18:48 by Tom Dash MD) Urinary tract infection ?N39.0 - Urinary tract infection, site not specified (ICD-10) Hypertension ?I10 - Essential (primary) hypertension (ICD-10) Hyperlipidemia ?E78.5 - Hyperlipidemia, unspecified (ICD-10) Insomnia ?G47.00 - Insomnia, unspecified (ICD-10) Urinary tract infection due to ESBL Klebsiella ?N39.0 - Urinary tract infection, site not specified (ICD-10) ?B96.89 - Other specified bacterial agents as the cause of diseases classified elsewhere (ICD-10) Cervical radiculopathy due to osteoarthritis of spine ?M47.22 - Other spondylosis with radiculopathy, cervical region (ICD-10) Lumbar pain ?M54.50 - Low back pain, unspecified (ICD-10) Left thigh pain ?M79.652 - Pain in left thigh (ICD-10) Adenomatous colon polyp ?D12.6 - Benign neoplasm of colon, unspecified (ICD-10) Urinary incontinence ?R32 - Unspecified urinary incontinence (ICD-10) DJD (degenerative joint disease) of cervical spine ?M47.812 - Spondylosis without myelopathy or radiculopathy, cervical region (ICD-10) Trigger finger of right hand ?M65.30 - Trigger finger, unspecified finger (ICD-10) Diverticulosis (04/16/10) ?K57.90 - Diverticulosis of intestine, part unspecified, without perforation or abscess without bleeding (ICD-10) Rheumatic fever (12/25/10) ?I00 - Rheumatic fever without heart involvement (ICD-10) Overweight (09/12/09) ?E66.3 - Overweight (ICD-10) Osteopenia (05/30/09) ?M85.80 - Other specified disorders of bone density and structure, unspecified site (ICD-10) Nodule of left lung ?R91.1 - Solitary pulmonary nodule (ICD-10) Family history of breast cancer ?Z80.3 - Family history of malignant neoplasm of breast (ICD-10) Cervical radiculopathy at C6 ?M54.12 - Radiculopathy, cervical region (ICD-10) Fatigue ?R53.83 - Other fatigue (ICD-10) Surgical History History of hand surgery (11/07/20) ?Z98.890 - Other specified postprocedural states (ICD-10) S/P tonsillectomy and adenoidectomy ?Z90.89 - Acquired absence of other organs (ICD-10) Family History Other Breast cancer Thyroid disease Social History (Updated 08/14/24 @ 15:39 by Viviane Andersen ~ [facility]) What is your current living situation?: I presently have a place to live Problems where you live: no known problems In the past 12 months, utilities in danger of being shut off: no In past 12 months, lack of transportation kept you from medical appts, meetings, work, or getting things needed for daily living: no In the past 12 mos, have been you worried that your food would run out before you had money to buy more?: never true In the past 12 mos, the food you bought just didn't last and you didn't have money to buy more?: never true Smoking Status: Never smoker Non-prescribed substance use: denies use How often does anyone, including family, friends and others, physically hurt you: never How often does anyone, including family, friends and others, insult or talk down to you: never How often does anyone, including family, friends and others, threaten you with harm: never How often does anyone, including family, friends and others, scream or curse at you: never Exam Narrative: Exam Narrative: Constitutional: Appears well-developed and well-nourished. Alert. Conversant. Non toxic. HENT: Head: Atraumatic. Nose: Nose normal. Mouth/Throat: Oral mucosa is clear and moist. no trismus. Eyes: Conjunctivae normal. EOM normal. Pupils equal, round, and reactive to light. No scleral icterus. Neck: Normal range of motion. Neck supple. No tracheal deviation present. Cardiovascular: Normal rate, regular rhythm. No gallop. No friction rub. No murmur heard. Symmetric radial artery pulses Pulmonary/Chest: Effort normal. No stridor. No respiratory distress. No wheezes. No rales. No rhonchi . No tenderness. Abdominal: Soft. Bowel sounds normal. No distension. No mass. No tenderness. No rebound. No guarding. Musculoskeletal: RUE: Normal range of motion. No tenderness. No deformity LUE: Normal range of motion. No tenderness. No deformity RLE: Normal range of motion. No edema. No tenderness. No deformity LLE: Normal range of motion. No edema. No tenderness. No deformity Neurological: Alert and oriented to person, place, and time. Normal strength. CN II-VII intact. No sensory deficit. GCS eye subscore is 4. GCS verbal subscore is 5. GCS motor subscore is 6. Normal coordination Skin: Skin is warm and dry. No rash noted. No pallor. Normal capillary refill. Psychiatric: Normal mood. Normal affect. Const: Vital Signs, click to edit/add: Vital Signs - 24 hr 06/26/25 15:07 Temperature 98.5 F Pulse Rate [Right Pulse Oximeter] 87 Respiratory Rate 18 Blood Pressure [Ri ght Upper Arm] 140/77 H Pulse Oximetry 95 Oxygen Delivery Me thod Room Air Course Vital Signs Vital signs: Initial Vital Signs Temperature 98.5 F 06/26/25 15:07 Temperature Source Temporal Artery Scan 06/26/25 15:07 Pulse Rate 87 06/26/25 15:07 Pulse Rhythm Regular 06/26/25 15:07 Pulse Strength 3+ Normal 06/26/25 15:07 Respiratory Rate 18 06/26/25 15:07 Blood Pressure 140/77 H 06/26/25 15:07 Blood Pressure Mean 98 06/26/25 15:07 Blood Pressure Position Sitting 06/26/25 15:07 Pulse Oximetry 95 06/26/25 15:07 Oxygen Delivery Method Room Air 06/26/25 15:07 Vital Signs Temperature 98.5 F 06/26/25 15:07 Pulse Rate 87 06/26/25 15:07 Respiratory Rate 18 06/26/25 15:07 Blood Pressure 140/77 H 06/26/25 15:07 Pulse Oximetry 95 06/26/25 15:07 Oxygen Delivery Method Room Air 06/26/25 15:07 Temperature 98.5 F 06/26/25 15:07 Pulse Rate 87 06/26/25 15:07 Respiratory Rate 18 06/26/25 15:07 Blood Pressure 140/77 H 06/26/25 15:07 Pulse Oximetry 95 06/26/25 15:07 Oxygen Delivery Method Room Air 06/26/25 15:07 Medications Administered Medications: Discontinued Medications Generic Name Dose Route Start Last Admin Trade Name Adrian PRN Reason Stop Dose Admin Cefepime HCl 2 gm/ Sodium 100 mls @ 200 mls/hr 06/26/25 17:37 06/26/25 18:26 Chloride IVPB 06/26/25 18:06 Infused ONCE ONE Infusion Medical Decision Making MDM Narrative Medical decision making narrative: This patient presents for evaluation of UTI symptoms including low abdominal discomfort, some urinary frequency, ongoing for a couple of months.. This clinically is consistent with a urinary tract infection. Urinalysis was already a done at her urologist's office and culture grows Pseudomonas aeruginosa with multiple antibiotic resistance is. There has been no fever, back/flank pain or significant abdominal pain. There is no clinical evidence of pyelonephritis, appendicitis, colitis, diverticulitis or any intraabdominal catastrophe. At this point no clear evidence for urosepsis. No evidence for obstructing kidney stone. At this point the patient, her , and I agree that she does not need to be in the hospital for treatment of this infection, save for we need an IV antibiotic to treat it. Consultation with pharmacy. In discussion of this situation with pharmacy, we reviewed the patient's symptoms, culture in detail. We came up with antibiotic regimen including cefepime 2 g twice daily for 7 days. Based on the patient's weight and kidney function, twice daily dosing for cefepime should keep adequate levels to treat her urinary infection. We administered the 1st dose of cefepime here in the ER. I have arranged plans for outpatient cefepime to be given twice daily for the next 7 days. The patient will come back tomorrow morning to receive her cefepime E infusion on the medical floor Although this point I think outpatient management is appropriate, discussed the risk of developing worsening symptoms or urosepsis. Return if increasing pain, vomiting, fever, or inability to tolerate the oral antibiotic. Follow up with primary physician is indicated if not improving. Lab Data Labs: Lab Results 06/26/25 Range/Units 17:30 WBC 8.41 (4.50-11.00) K/uL RBC 4.71 (4.00-5.20) m/uL Hgb 13.7 (12.0-16.0) gm/dL Hct 43.4 (33.0-51.0) % MCV 92 (80-100) fL MCH 29 (26-34) pg MCHC 32 (32-36) gm/dL RDW Coeff of Didi 12.7 (11.5-15.5) % Plt Count 273 (140-440) K/uL Neut % (Auto) 69.2 (42.0-72.0) % Lymph % (Auto) 19.5 L (20-44) % [place] % (Auto) 9.0 (0.0-11.0) % Eos % (Auto) 1.7 (0.0-7.0) % Baso % (Auto) 0.5 (0.0-3.0) % Neut # (Auto) 5.82 (1.7-7.0) K/uL Lymph # (Auto) 1.60 (0.90-2.90) K/uL [place] # (Auto) 0.80 (0.00-0.90) K/UL Eos # (Auto) 0.14 (0.00-0.50) K/uL Baso # (Auto) 0.04 (0.00-0.30) K/uL Abs Immat Gran (auto) 0.01 (0.00-0.30) K/uL Imm/Tot Granulo (auto) 0.1 % Sodium 137 (135-149) mmol/L Potassium 3.3 L (3.6-5.1) mmol/L Chloride 96 (96-114) mmol/L Carbon Dioxide 26 (20-32) mmol/L Anion Gap 15 (7-15) mEq/L BUN 20 (7-30) mg/dL Creatinine 0.9 (0.5-1.5) mg/dL Estimated GFR 67 ml/min Glucose 123 H (60-115) mg/dL Lactate 1.4 (0.5-1.9) mmol/L Calcium 9.6 (8.4-10.6) mg/dL Discharge Plan Discharge Clinical Impression: Complicated urinary tract infection Patient Disposition: Home, Self-Care Condition: Stable Instructions: Urinary Tract Infection in Women (DC) Additional Instructions: As we discussed, we have a plan in place free to come back to the hospital twice a day to get antibiotics for the next 7 days. Come back to the hospital tomorrow morning at around 8:00 a.m. and you will be taken to the medical/surgical floor where he can receive your next dose of antibiotic. Come back again tomorrow evening at 8:00 p.m.. Do this twice a day for the next 7 days. In the meantime if you have worsening of your clinical conditions such as worsening fever, pain, nausea, weakness, or any concerns, please return to the ER. Prescriptions: No Action aspirin 81 mg tablet,delayed release (DR/EC) 81 mg PO QDAY atorvastatin 20 mg tablet 20 mg PO QPM zolpidem 5 mg tablet 5 mg PO QHS PRN (Reason: insomnia) Qty: 90 1RF Follow Up/Referrals: Shane Tobin MD [Primary Care Provider, Family Practice] Stand Alone Forms: [place] [employer] Info Instructions
[2025-06-26 17:37] LABS: Lactate* 1.4 mmol/L (0.5-1.9)
[2025-06-26 17:39] LABS: Hematocrit* 43.4 % (33.0-51.0); Hemoglobin* 13.7 gm/dL (12.0-16.0); Immature Granulocytes Abs Auto 0.01 K/uL (0.00-0.30); Immature Granulocytes Pct Auto 0.1 %; Mean Corpuscular HGB Conc 32 gm/dL (32-36); Mean Corpuscular Hemoglobin 29 pg (26-34); Mean Corpuscular Volume 92 fL (80-100); RDW Coefficient of Variation % 12.7 % (11.5-15.5); Red Blood Count* 4.71 m/uL (4.00-5.20); White Blood Count* 8.41 K/uL (4.50-11.00)
[2025-06-26 17:41] LABS: Lymphocytes Absolute Auto 1.60 K/uL (0.90-2.90); Slide Review Reflex No
[2025-06-26] MEDS: CEFEPIME HCL 2 GM in 0.9 % SODIUM CHLORIDE Mini-bag 100 ML IVPB (17:53)
[2025-06-26 18:20] LABS: Chloride* 96 mmol/L (96-114); Sodium* 137 mmol/L (135-149)
[2025-06-26 18:21] LABS: Potassium* 3.3 mmol/L (3.6-5.1)
[2025-06-26 18:23] LABS: Blood Urea Nitrogen* 20 mg/dL (7-30); Creatinine* 0.9 mg/dL (0.5-1.5); Estimated Glomerular Filt Rate 67 ml/min
[2025-06-26 18:24] LABS: Anion Gap 15 mEq/L (7-15); Calcium* 9.6 mg/dL (8.4-10.6); Carbon Dioxide* 26 mmol/L (20-32); Glucose* 123 mg/dL (60-115)
== END 2025-06-26 18:54 | disposition home or self-care (01) ==
PROVIDERS: Emergency Provider Emergency Medicine; PCP Family Medicine
DX: N39.0 Urinary tract infection, site not specified (principal); B96.5 Pseudomonas (aeruginosa) (mallei) (pseudomallei) as the cause of diseases classified elsewhere; Z87.440 Personal history of urinary (tract) infections
CPT/HCPCS: 36415; 80048; 81001; 83605; 85025; 96365; 99283; 99284; J0692

== ENCOUNTER 2025-07-06 14:54 | Outpatient (CLI) | payer OTHER, SELFPAY | END 2025-07-06 14:55 | disposition home or self-care (01) | LOC: NFLDREF 14:55 | PROVIDERS: PCP Family Medicine; Visit Provider Family Medicine | DX: N39.0 Urinary tract infection, site not specified (principal) | CPT/HCPCS: 87086 ==

== ENCOUNTER 2025-07-14 12:00 | Outpatient (CLI) | payer OTHER, SELFPAY | END 2025-07-14 12:01 | disposition home or self-care (01) | LOC: NFLDREF 07-16 13:55 | PROVIDERS: PCP Family Medicine; Referring Provider Family Medicine; Visit Provider Nurse Practitioner Family | DX: N39.0 Urinary tract infection, site not specified (principal) | CPT/HCPCS: 87086 ==